=== PATIENT | male | born 1960 | race Two or more races ===

== ENCOUNTER 2025-01-26 11:18 | Emergency (ER) | payer OTHER, SELFPAY ==
[2025-01-26 11:19] VITALS: BMI 42.0
[2025-01-26 11:48] VITALS: BP 174/94; PULSE 88; RESP 20; TEMP 36.7; O2SAT 96
--- NOTE | 2025-01-26 11:57 | XR_ITS ---
EXAMINATION: Ankle, right 3 views . Technique: Ankle AP, oblique, lateral 3 views Date and time of exam: January 26, 2025 at 1214 p.m. Indications: Injury to the knee, ankle pain. Findings: No acute fracture No dislocation Plantar posterior bony spurs Impression: No acute fracture
--- NOTE | 2025-01-26 11:57 | XR_ITS ---
Examination: Duplex scan of the lower extremity, unilateral right complete Date and time of exam: January 26, 2025 1245 hrs. Indications: Right leg filling and pain beginning 2 days ago Technique: Duplex scan of the extremity veins using B-mode/grayscale imaging and Doppler spectral analysis and color flow Attention is directed to internal echogenicity, compression and augmentation involving these veins, color flow assessment, spectral analysis Findings: Major deep venous structures in the extremity demonstrate normal course and caliber. There is no evidence of deep vein thrombosis. Normal color flow and spectral analysis Impression: Negative for DVT..
--- NOTE | 2025-01-26 11:57 | XR_ITS ---
Examination: Foot, right, 3 views Technique: AP, oblique, lateral views foot, 3 views Date and time of exam: January 27, 2020 0514 hrs. Indications: Sudden onset flank pain beginning 4 days ago Findings: Prominent osteopenia Old appearing fracture proximal phalanx fifth digit, clinical correlation advised Posterior plantar bony calcaneal spurs Soft tissue swelling dorsum of the foot Impression: Old appearing fracture proximal phalanx fifth digit, clinical correlation advised
[2025-01-26 12:10] LABS: Basophils # (Auto) 0.1 Thou/mm3 (0.0-0.2); Basophils % (Auto) 0 % (0-2.5); Eosinophils % (Auto) 0 % (0-10); Hematocrit 45.2 % (41.0-53.0); Hemoglobin 15.8 g/dL (13.5-16.0); Immature Granulocytes % (Auto) 0 % (0-0); Immature Granulocytes Auto 0.04 Thou/mm3 (0.00-0.00); Lymphocytes # (Auto) 1.4 Thou/mm3 (1.0-4.8); Lymphocytes % (Auto) 13 % (10-50); Mean Corpuscular Hemoglobin 30.3 pg (25.0-35.0); Mean Corpuscular Volume 87 fL (80-100); Monocytes # (Auto) 0.5 Thou/mm3 (0.0-0.8); Monocytes % (Auto) 5 % (0-12); Neutrophils # (Auto) 9.3 Thou/mm3 (1.8-7.7); Neutrophils % (Auto) 82 % (37-80); Nucleated Red Blood Cell % 0 /100 WBC (0); Platelet Count 210 Thou/mm3 (140-440); RDW Standard Deviation 45.1 fL (35.1-43.9); Red Blood Count 5.22 Miln/mm3 (4.50-5.90); White Blood Count 11.4 Thou/mm3 (3.8-10.6)
[2025-01-26 12:29] LABS: INR 1.4 (0.9-1.3); Partial Thromboplastin Time 34.4 Seconds (22.0-36.0); Prothrombin Time 15.3 Seconds (9.0-12.2)
[2025-01-26 12:32] LABS: Alanine Aminotransferase 15 U/L (10-49); Albumin, Serum 4.3 gm/dL (3.4-4.8); Albumin/Globulin Ratio 1.3 (1.2-2.2); Alkaline Phosphatase 144 U/L (46-116); Anion Gap 8 (7-16); Aspartate Amino Transferase 24 U/L (0-34); BUN/Creatinine Ratio 11 Ratio (12-20); Bilirubin,Total 0.8 mg/dL (0.3-1.2); Blood Urea Nitrogen 14 mg/dL (9-23); Calcium 8.9 mg/dL (8.3-10.6); Calcium (Corrected) 8.9 mg/dL (8.5-10.1); Carbon Dioxide 27.1 mMol/L (20.0-31.0); Chloride 105 mMol/L (98-107); Creatinine (Component) 1.3 mg/dL (0.6-1.3); Estimated Creatinine Clearance 68.1 mL/min (>60); Globulin 3.4 gm/dL (2.3-3.5); Glucose 188 mg/dL (74-106); Osmolality,Calculated 284 (275-295); Potassium 4.1 mMol/L (3.4-5.1); Sodium 140 mMol/L (136-145); Total Protein 7.7 gm/dL (5.7-8.2); eGFR > 60 See Note
--- NOTE | 2025-01-26 13:44 | PD.EDRME ---
Rapid Medical Screening Exam RME Arrival date/time: 01/26/25 11:18 64-year-old male presents to the emergency department today for complaints of right foot pain and swelling Chief Complaint: Extremity Problem,Nontraumatic Time Seen by Provider: 01/26/25 11:24 Vital signs: Vital Signs Temperature 98.1 F 01/26/25 11:48 Pulse Rate 88 01/26/25 11:48 Respiratory Rate 20 01/26/25 11:48 Blood Pressure 174/94 H 01/26/25 11:48 Pulse Oximetry (%) 96 01/26/25 11:48 Oxygen Delivery Method Room Air 01/26/25 11:48
[2025-01-26 16:31] VITALS: BP 169/96; PULSE 81; RESP 18; TEMP 36.5; O2SAT 96
--- NOTE | 2025-01-26 16:58 | EDNOTE_ITS ---
<Statement entered by Amada Liu MD - 01/27/25 08:12> As co-signing physician, I was present and available for consult prn. I concur with the plan and care as documented by the midlevel provider. ED General RME/HPI General Chief complaint: Extremity Problem,Nontraumatic Stated complaint: RIGHT ANKLE SWELLING, DENIES INJURY Time Seen by Provider: 01/26/25 11:24 Arrival date/time: 01/26/25 11:18 CC: Swelling of the right foot HPI ongoing for the past 3 days states he wakes up with a swollen in the morning. Patient denies any shortness of breath chest pain or swelling in the left foot. There is localized tenderness but it is not severe. No other complaints at this time RME / HPI RME / HPI narrative: 01/26/25 11:18 64-year-old male presents to the emergency department today for complaints of right foot pain and swelling Related Data Previous Rx's ?Medication ?Instructions ?Recorded furosemide 40 mg tablet 40 mg PO QAM #3 tabs 5 Allergies Allergy/AdvReac Type Severity Reaction Status Date / Time No Known Allergies Allergy Verified 01/26/25 11:21 Review of Systems Review of Systems Narrative Review of Systems: GEN: No fever, no chills, no weight loss EYES: No discharge, no visual changes, no pain HEENT: No ear pain, no congestion, no sore throat PULM: No shortness of breath, no cough, no congestion CV: No chest pain, no dyspnea on exertion, no palpitations GI: No nausea, no vomiting, no diarrhea, no pain, no constipation : No frequency, no urgency, no dysuria MUSC/SKEL: No joint pain, no back pain SKIN: No rash PSYCH: No hallucinations, no depression HEME/LYMPH: No easy bleeding or bruising tendencies NEURO: No weakness, no headache Past Medical History Social History SMOKING STATUS: Never smoker ED Exam Narrative Physical exam: [General: Morbidly obese not in any acute distress Head normocephalic HEENT: Within acceptable limits Neck is supple nontender Chest equal chest rise nontender to palpation Respiratory: Clear to auscultation no wheezes crackles or rubs CV: Rate rhythm is regular no murmurs rubs or clicks Abdomen is distended secondary to body habitus soft nontender no masses positive bowel sounds all 4 quadrants Back: No CVA tenderness no spinous process tenderness from cervical spine thoracic and lumbar spine Skin: Intact no petechiae rash induration ulceration or crepitus Extremities: Right lower extremity nonpitting edema of the ankle dorsum of the foot. Not warm to touch no erythema or streaking. Moving all other extremities against resistance cap refill less than 2 seconds neurosensory intact Neuro: Awake alert oriented x3 Glascow coma 15 no focal deficits] Course Quality Measures none Orders Category Date Time Status Crutches .NOW Care 01/26/25 17:03 Completed US venous doppler LE RT Stat Exams 01/26/25 11:57 Completed XR ankle comp RT min 3V Stat Exams 01/26/25 11:57 Completed XR foot comp RT min 3V Stat Exams 01/26/25 11:57 Completed CBC Stat Lab 01/26/25 12:04 Completed Comprehensive Metabolic Panel Stat Lab 01/26/25 12:04 Completed Partial Thromboplastin Time Stat Lab 01/26/25 12:04 Completed Prothrombin Time with INR Stat Lab 01/26/25 12:04 Completed Uric Acid Stat Lab 01/26/25 12:04 Completed Vital Signs Vital signs: Vital Signs Temperature 98.1 F 01/26/25 11:48 Pulse Rate 88 01/26/25 11:48 Respiratory Rate 20 01/26/25 11:48 Blood Pressure 174/94 H 01/26/25 11:48 Pulse Oximetry (%) 96 01/26/25 11:48 Oxygen Delivery Method Room Air 01/26/25 11:48 [facility] Patient data External records reviewed:: [facility] previous records Clinical information provided by:: patient Social determinants that could affect healthcare access:: none Patient has the following chronic illnesses:: Morbid obesity metal valve, on Coumadin How is presenting disease/condition affected by chronic disease/condition?: u neffected by Evaluation data The following diagnostics were reviewed and interpreted by me:: lab results and radiology exam(s) Lab and/or radiology exams considered but not ordered:: Ultrasound of the leg is negative for DVT ankle and foot x-ray are negative for any acute finding although there is interpreted by me read by radiology CBC shows 11,400 white count no anemia thrombocytopenia CMP shows no acute renal impairment transaminitis or T. bili elevation other than a glucose of 188. Coags show an INR of 1.4 note the patient is subtherapeutic for Coumadin. T. bili is negative no transaminitis. Interpretation Summary: I suspect this is dependent edema, patient be discharged home on a 3-day course of Lasix if there is a worsening of symptoms he is to return to his primary care provider for an outpatient cardiac referral. Medications Medications considered but not ordered:: None Medication administrations:: None Consultations Consultation(s) initiated? (list below): No Diagnosis Differential Diagnosis ED Complaint MDM: DVT ankle fracture Most likely diagnosis given after review of the tests above:: Lower extremity pain edema Admission Indicated Admission indicated?: not indicated Explain why admission is indicated or not indicated:: Stable for discharge Admission Request Was there a request for admission?: No Disposition Plan Disposition Plan: Discharge Discharge Attestation Discharge Attestation: The patient and all family members were given an opportunity to ask questions and understood the discharge instructions. Discharge instructions specifically effects, indications for sooner follow up or return to the emergency department, and the expected course of current diagnosis. Patient condition: Stable Medical Decision Making Differential Diagnosis Differential Diagnosis: DVT ankle fracture Lab Data 01/26/25 12:04 01/26/25 12:04 Labs: Lab Results 01/26/25 Range/Units 12:04 WBC 11.4 H (3.8-10.6) Thou/mm3 RBC 5.22 (4.50-5.90) Miln/mm3 Hgb 15.8 (13.5-16.0) g/dL Hct 45.2 (41.0-53.0) % MCV 87 (80-100) fL MCH 30.3 (25.0-35.0) pg MCHC 35.0 (31.0-37.0) g/dl RDW Std Deviation 45.1 H (35.1-43.9) fL Plt Count 210 (140-440) Thou/mm3 Neut % (Auto) 82 H (37-80) % Lymph % (Auto) 13 (10-50) % Pine % (Auto) 5 (0-12) % Eos % (Auto) 0 (0-10) % Baso % (Auto) 0 (0-2.5) % Neut # (Auto) 9.3 H (1.8-7.7) Thou/mm3 Lymph # (Auto) 1.4 (1.0-4.8) Thou/mm3 Pine # (Auto) 0.5 (0.0-0.8) Thou/mm3 Eos # (Auto) 0.0 (0.0-0.5) Thou/mm3 Baso # (Auto) 0.1 (0.0-0.2) Thou/mm3 Immature Gran # (Auto) 0.04 H (0.00-0.00) Thou/mm3 Absolute Nucleated RBC 0.00 (0.00-0.00) Thou/mm3 Immature Gran % 0 (0-0) % Nucleated RBC % 0 (0) /100 WBC PT 15.3 H (9.0-12.2) Seconds INR 1.4 H (0.9-1.3) APTT 34.4 (22.0-36.0) Seconds Sodium 140 (136-145) mMol/L Potassium 4.1 (3.4-5.1) mMol/L Chloride 105 (98-107) mMol/L Carbon Dioxide 27.1 (20.0-31.0) mMol/L Anion Gap 8 (7-16) BUN 14 (9-23) mg/dL Creatinine 1.3 (0.6-1.3) mg/dL Estim Creat Clear Calc 68.1 (>60) mL/min eGFR > 60 (60 - ) See Note BUN/Creatinine Ratio 11 L (12-20) Ratio Glucose 188 H (74-106) mg/dL Calculated Osmolality 284 (275-295) Uric Acid 8.0 (3.7-9.2) mg/dL Calcium 8.9 (8.3-10.6) mg/dL Corrected Calcium 8.9 (8.5-10.1) mg/dL Total Bilirubin 0.8 (0.3-1.2) mg/dL AST 24 (0-34) U/L ALT 15 (10-49) U/L Alkaline Phosphatase 144 H (46-116) U/L Total Protein 7.7 (5.7-8.2) gm/dL Albumin 4.3 (3.4-4.8) gm/dL Globulin 3.4 (2.3-3.5) gm/dL Albumin/Globulin Ratio 1.3 (1.2-2.2) Discharge Plan Plan Patient Disposition: HOME (Self Care) Patient condition on transfer: Stable Prescriptions/Referrals Prescriptions/Med Rec: New furosemide 40 mg tablet 40 mg PO QAM Qty: 3 0RF Referrals: Dave Hinds MD [Primary Care Provider] - In 1 week Problem List Clinical Impression: Lower leg edema Patient/Caregiver Discharge Instructions Education Materials: Taking a Diuretic Additional Instructions: Take medications in the morning, if there is no reduction in the swelling in the foot return here primary care provider for further evaluation. Print Language: Mohawk Stand Alone Forms: Renetta Award Info., Patient Portal Info Letter PA/SECURITIES CLERK Supervising Physician PA/SECURITIES CLERK Supervising Physician: Shay Patrick ENP
== END 2025-01-26 17:45 | disposition home or self-care (01) ==
PROVIDERS: Nurse Practitioner Primary Care; Emergency Provider Emergency Medicine; PCP Family Medicine
DX: R60.0 Localized edema (principal); E66.01 Morbid (severe) obesity due to excess calories; Z68.41 Body mass index [BMI] 40.0-44.9, adult
CPT/HCPCS: 36415; 73610; 73630; 80053; 84550; 85025; 85610; 85730; 93971; 99284